=== PATIENT | female | born 1995 | race African-American/Black ===

== ENCOUNTER 2020-06-16 12:51 | Emergency (ER) | payer SELFPAY ==
[2020-06-16] MEDS ORDERED: AZITHROMYCIN 250 MG TABLET PO ONE (13:03)
[2020-06-16] MEDS ORDERED: LIDOCAINE 1% INJ-PF (10 MG/ML) 30 ML SDV IM ONE (13:03)
[2020-06-16] MEDS ORDERED: CEFTRIAXONE INJ 250 MG VIAL IM ONE (13:03)
--- NOTE | 2020-06-16 13:04 | ER Document Report ---
HPI - HPI Time Seen by Provider: 06/16/20 12:59 Notes: Otherwise healthy 24-year-old female presenting with 2-day history of pain at the vaginal area, dysuria and cloudy discharge. She would like to be tested for STDs. She would also like treatment for potential STD exposure. She reports a new partner recently. She denies any fever, chills, nausea, vomiting or diarrhea. - ROS Systems Reviewed and Negative: Yes All other systems reviewed and negative - CONSTITUTIONAL Constitutional: DENIES: Fever, Chills - GASTROINTESTINAL Gastrointestinal: DENIES: Abdominal Pain - URINARY Urinary: REPORTS: Dysuria - REPRODUCTIVE Reproductive: REPORTS: Abnormal bleeding / discharge - cloudy discharge Notes: vaginal discomfort with wiping Past Medical History - General Information source: Patient - Social History Smoking Status: Never Smoker Frequency of alcohol use: None Drug Abuse: None Family History: None - Medical History Medical History: Negative Surgical Hx: Negative Vertical Provider Document - CONSTITUTIONAL Notes: PHYSICAL EXAMINATION: GENERAL: Well-appearing, well-nourished and in no acute distress. HEAD: Atraumatic, normocephalic. EYES: Pupils equal round and reactive to light, extraocular movements intact, conjunctiva are normal. ENT: Nares patent, oropharynx clear without exudates. Moist mucous membranes. NECK: Normal range of motion, supple without lymphadenopathy LUNGS: Breath sounds clear to auscultation bilaterally and equal. No wheezes rales or rhonchi. HEART: Regular rate and rhythm without murmurs ABDOMEN: Soft, nontender, nondistended abdomen. No guarding, no rebound. No masses appreciated. Female : Normal external genitalia, no rashes noted, cervix closed, nonfriable, small amount of dark blood noted in the vaginal canal, no abnormal discharge noted, no cervical motion or adnexal tenderness. Musculoskeletal: Normal range of motion, no pitting or edema. No cyanosis. NEUROLOGICAL: Cranial nerves grossly intact. Normal speech, normal gait. Normal sensory, motor exams PSYCH: Normal mood, normal affect. SKIN: Warm, Dry, normal turgor, no rashes or lesions noted. Course - Re-evaluation Re-evalutation: Vaginal exam performed, patient medicated for any potential chlamydia or gonorrhea infection, these are still pending. Patient discharged home with ED return precautions. Discharge - Discharge Clinical Impression: Urinary tract infection Qualifiers: Urinary tract infection type: site unspecified Hematuria presence: with hematuria Qualified Code(s): N39.0 - Urinary tract infection, site not specified Condition: Stable Disposition: HOME, SELF-CARE Additional Instructions: Your urine shows findings consistent with a urinary tract infection. Please take all the antibiotics as directed even if your symptoms have improved. Please follow-up with your primary care physician as needed. Return to emergenc y room if you develop fever >101F, persistent vomiting, become lethargic, have severe pain in your sides, or any other symptoms that are concerning to you. Prescriptions: Cephalexin [Keflex] 500 mg PO BID #14 capsule Forms: Return to Work
[2020-06-16 13:28] LABS: APPEARANCE,URINE CLEAR; BILIRUBIN,URINE NEGATIVE (NEGATIVE); COLOR,URINE YELLOW; GLUCOSE, URINE NEGATIVE (NEGATIVE); KETONES,URINE NEGATIVE (NEGATIVE); LEUKOCYTE ESTERASE,URINE TRACE (NEGATIVE); NITRITE,URINE NEGATIVE (NEGATIVE); PROTEIN,URINE NEGATIVE (NEGATIVE); URINE SPECIFIC GRAVITY 1.023; UROBILINOGEN,URINE NEGATIVE mg/dL (<2.0)
[2020-06-16 13:34] LABS: ADD MANUAL MICROSCOPIC YES; WBC,URINE 0-1 /HPF
[2020-06-16 13:47] LABS: T.VAGINALIS (WET MOUNT) NO TRICHOMONAS SEEN
[2020-06-16 13:48] LABS: RBCS (WET MOUNT) 4+ RBCS SEEN; WBCS (WET MOUNT) RARE WBCS SEEN; YEAST (WET MOUNT) NO YEAST SEEN
[2020-06-16 15:04] LABS: CHLAM PCR NOT DETECTED (NOT DETECT)
== END 2020-06-16 14:25 | disposition home or self-care (01) ==
LOC: ER 12:51
DX: N39.0 Urinary tract infection, site not specified (principal); N93.9 Abnormal uterine and vaginal bleeding, unspecified; R10.2 Pelvic and perineal pain; R30.0 Dysuria; N89.8 Other specified noninflammatory disorders of vagina; Z20.2 Contact with and (suspected) exposure to infections with a predominantly sexual mode of transmission
CPT/HCPCS: 99284; 96372; 87086; 87210; 81001; 87491; 87591; J3490; J0696

== ENCOUNTER 2020-07-01 17:49 | Emergency (ER) | payer SELFPAY ==
--- NOTE | 2020-07-01 18:16 | ER Document Report ---
ED Medical Screen (RME) - General Chief Complaint: Vaginal Pain Stated Complaint: VAGINAL SWELLING Time Seen by Provider: 07/01/20 18:11 Mode of Arrival: Ambulatory Information source: Patient Notes: HPI; 24-year-old female presents to the emergency room complaining of vaginal pain for the past week. States it hurts to wipe. States she tried using some [id number] Vagisil without relief. Complains of white discharge. No change in sexual partners. No history of STDs. PE: Alert and oriented x3. Mild distress noted. Lungs: Clear to auscultation without rales, rhonchi, wheezes. Heart: Regular rate and rhythm without murmurs, rubs, gallops. Unable to do full exam in triage I have greeted and performed a rapid initial assessment of this patient. A comprehensive ED assessment and evaluation of the patient, analysis of test results and completion of the medical decision making process will be conducted by additional ED providers. I have specifically instructed the patient or family members with the patient to immediately return to any nursing staff should anything change in the patient's condition or with their chief complaint. TRAVEL OUTSIDE OF THE [place] IN LAST 30 DAYS: No - Related Data Allergies/Adverse Reactions: No Known Allergies Allergy (Unverified 06/16/20 13:39) Past Medical History - Social History Frequency of alcohol use: None Drug Abuse: None Physical Exam - Vital signs Vitals: Temp Pulse Resp BP Pulse Ox 98.3 F 84 16 150/90 H 98 07/01/20 17:58 07/01/20 17:58 07/01/20 17:58 07/01/20 17:58 07/01/20 17:58 Course - Vital Signs Vital signs: Temp Pulse Resp BP Pulse Ox 98.3 F 84 16 150/90 H 98 07/01/20 17:58 07/01/20 17:58 07/01/20 17:58 07/01/20 17:58 07/01/20 17:58
[2020-07-01 19:05] LABS: APPEARANCE,URINE CLEAR; BILIRUBIN,URINE NEGATIVE (NEGATIVE); COLOR,URINE YELLOW; GLUCOSE, URINE NEGATIVE (NEGATIVE); KETONES,URINE NEGATIVE (NEGATIVE); LEUKOCYTE ESTERASE,URINE SMALL (NEGATIVE); NITRITE,URINE NEGATIVE (NEGATIVE); PROTEIN,URINE NEGATIVE (NEGATIVE); URINE SPECIFIC GRAVITY 1.021; UROBILINOGEN,URINE NEGATIVE mg/dL (<2.0)
--- NOTE | 2020-07-02 03:16 | ER Document Report ---
ED General - General Chief Complaint: Vaginal Pain Stated Complaint: VAGINAL SWELLING Time Seen by Provider: 07/01/20 18:11 Primary Care Provider: [facility] [Provider Group] - Follow up as needed Mode of Arrival: Ambulatory Information source: Patient TRAVEL OUTSIDE OF THE [place] IN LAST 30 DAYS: No - HPI Notes: Patient is a 24-year-old female who presents with vaginal pain and itching for over 2 weeks. She reports white, creamy vaginal discharge, dysuria, and vaginal swelling. She denies vaginal bleeding, abdominal pain, hematuria, fever, chills, nausea, and vomiting. Patient reports improvement in her symptoms only with cold compresses. She was seen in the ED two weeks ago for similar symptoms and was diagnosed with a UTI and was discharged home with Keflex. Patient endorses completing the full course of antibiotics. Patient denies any sexual activity since her last visit. Gonorrhea and chlamydia were negative two weeks ago. - Related Data Allergies/Adverse Reactions: No Known Allergies Allergy (Unverified 06/16/20 13:39) Past Medical History - General Information source: Patient - Social History Smoking Status: Never Smoker Frequency of alcohol use: None Drug Abuse: None Family History: None Review of Systems - Review of Systems Constitutional: No symptoms reported EENT: No symptoms reported Cardiovascular: No symptoms reported Respiratory: No symptoms reported Gastrointestinal: No symptoms reported Genitourinary: No symptoms reported Female Genitourinary: See HPI Musculoskeletal: No symptoms reported Skin: No symptoms reported Hematologic/Lymphatic: No symptoms reported Neurological/Psychological: No symptoms reported Physical Exam - Vital signs Vitals: Temp Pulse Resp BP Pulse Ox 98.3 F 84 16 150/90 H 98 07/01/20 17:58 07/01/20 17:58 07/01/20 17:58 07/01/20 17:58 07/01/20 17:58 - Notes Notes: PHYSICAL EXAMINATION: VITALS: Vitals reviewed and within normal limits. GENERAL: Well-appearing, well-nourished and in no acute distress. HEAD: Atraumatic, normocephalic. EYES: Pupils equal round and reactive to light, extraocular movements intact, sclera anicteric, conjunctiva are normal. ENT: nares patent, oropharynx clear without exudates. Moist mucous membranes. NECK: Normal range of motion, supple without lymphadenopathy. LUNGS: Breath sounds clear to auscultation bilaterally and equal. No wheezes rales or rhonchi. HEART: Regular rate and rhythm without murmurs. ABDOMEN: Soft, nontender, normoactive bowel sounds. No guarding, no rebound. No masses appreciated. FEMALE : Normal external genitalia, no rashes noted. Tenderness and swelling noted to labia minora and labia majora. The cervix closed, nonfriable, large amount of white discharge noted in the vaginal canal. + cervical motion tenderness. No adnexal tenderness. No palpable, masses. EXTREMITIES: Normal range of motion, no pitting or edema. No cyanosis. NEUROLOGICAL: No focal neurological deficits. Moves all extremities spontaneously and on command. PSYCH: Normal mood, normal affect. SKIN: Warm, Dry, normal turgor, no rashes or lesions noted. Course - Re-evaluation Re-evalutation: Patient is a 24 y/o female and presents with vaginal pain and itching for the past two weeks. Patient was seen in the ED at onset for similar symptoms and was diagnosed with UTI and discharged home with keflex. Patient has had a worsening in her symptoms. Vital signs normal. On exam, patient external genitalia is extremely tender. White discharge noted in vaginal canal with + cervical motion tenderness. No yeast or trichomonas seen on wet prep, 1+WBCs seen. Gonorrhea and chlamydia negative. Patient's symptoms, exam and workup are consistent with possible pelvic infection. Rocephin IM, azithromycin PO and diflucan PO given in the ED. Patient will be discharged home with return precautions. Laboratory 07/01/20 07/02/20 18:20 03:37 Urine Color YELLOW Urine Appearance CLEAR Urine pH 6.0 Ur Specific Driscoll 1.021 Urine Protein NEGATIVE Urine Glucose (UA) NEGATIVE Urine Ketones NEGATIVE Urine Blood NEGATIVE Urine Nitrite NEGATIVE Urine Bilirubin NEGATIVE Urine Urobilinogen NEGATIVE Ur Leukocyte Esterase SMALL H Urine WBC (Auto) 1 Urine RBC (Auto) 1 Squamous Epi Cells Auto 4 Urine Mucus (Auto) RARE Urine Ascorbic Acid NEGATIVE Urine HCG, Qual NEGATIVE Trichomonas (Wet Prep) NO TRICHOMONAS SEEN Vaginal WBC 1+ WBCS SEEN Vaginal Yeast NO YEAST SEEN - Vital Signs Vital signs: Temp Pulse Resp BP Pulse Ox 97.1 F 76 20 123/81 99 07/02/20 06:17 07/02/20 06:06 07/02/20 06:06 07/02/20 06:06 07/02/20 06:06 - Laboratory Laboratory results interpreted by me: 07/01/20 18:20 Ur Leukocyte Esterase SMALL H Discharge - Discharge Clinical Impression: Pelvic pain, Vaginal discharge Condition: Stable Disposition: HOME, SELF-CARE Additional Instructions: Take ibuprofen or Tylenol for symptom relief. Call the doctor or return at once if you develop increasing fever, rash, severe pelvic pain, vaginal bleeding (other than your period), or problems with your bladder or bowels. Follow up with primary care provider in 1-2 weeks. Referrals: [facility] [Provider Group] - Follow up as needed
[2020-07-02 03:56] LABS: T.VAGINALIS (WET MOUNT) NO TRICHOMONAS SEEN; WBCS (WET MOUNT) 1+ WBCS SEEN; YEAST (WET MOUNT) NO YEAST SEEN
[2020-07-02 05:19] LABS: CHLAM PCR NOT DETECTED (NOT DETECT)
[2020-07-02] MEDS ORDERED: LIDOCAINE 1% INJ-PF (10 MG/ML) 30 ML SDV INJ ONE (05:23)
[2020-07-02] MEDS ORDERED: CEFTRIAXONE INJ 250 MG VIAL IM ONE (05:23)
[2020-07-02] MEDS ORDERED: AZITHROMYCIN 250 MG TABLET PO ONE (05:27)
[2020-07-02] MEDS ORDERED: FLUCONAZOLE 100 MG TABLET PO ONE (05:34)
[2020-07-02 06:07] VITALS: BP 123/81
== END 2020-07-02 06:20 | disposition home or self-care (01) ==
LOC: ER 17:49
DX: R10.2 Pelvic and perineal pain (principal); N89.8 Other specified noninflammatory disorders of vagina
CPT/HCPCS: 99284; 96372; 87210; 81025; 81001; 87491; 87591; J3490; J0696